=== PATIENT | female | born 1965 | race Caucasian/White ===

== ENCOUNTER 2021-04-15 12:34 | Emergency (ER) | payer OTHER ==
[~2021-04-15] VITALS: Ht 167.6 cm; Wt 82.1 kg
== END 2021-04-15 15:03 | disposition home or self-care (01) ==
LOC: ED 12:34
DX: S80.02XA Contusion of left knee, initial encounter (principal); S80.01XA Contusion of right knee, initial encounter; Z88.8 Allergy status to other drugs, medicaments and biological substances; V89.2XXA Person injured in unspecified motor-vehicle accident, traffic, initial encounter; Y93.89 Activity, other specified; Y92.89 Other specified places as the place of occurrence of the external cause; Y99.8 Other external cause status